=== PATIENT | male | born 1975 | race Caucasian/White ===

== ENCOUNTER 2018-02-20 17:53 | Emergency (ER) | payer SELFPAY ==
[~2018-02-20] VITALS: Ht 188 cm; Wt 86.2 kg
--- NOTE | 2018-02-20 18:13 | PHYS DOC ---
Adult General Chief Complaint Chief Complaint: OVERDOSE HPI HPI 42-year-old male presents via private vehicle and responsive. The patient first came in unable to respond to the staff. They were able to lift him from the car into a wheelchair. He was breathing, but was not responding to them. He was very diaphoretic. Once in the ED, we gave him 2 mg of Narcan and the patient woke up. He then told me that the last he remembers is going to [employer] for dinner. I asked if he took any drugs after [employer], and he denied this. He insisted he was okay now. He initially wanted to refuse treatment, but I explained him the nature of his condition when he arrived and the importance of staying. He did settle down and stay. He denies any medical history or other complaints. Review of Systems Review of Systems Constitutional: Denies fever or chills [] Eyes: Denies change in visual acuity, redness, or eye pain [] HENT: Denies nasal congestion or sore throat [] Respiratory: Denies cough or shortness of breath [] Cardiovascular: No additional information not addressed in HPI [] GI: Denies abdominal pain, nausea, vomiting, bloody stools or diarrhea [] : Denies dysuria or hematuria [] Musculoskeletal: Denies back pain or joint pain [] Integument: Denies rash or skin lesions [] Neurologic: Denies headache, focal weakness or sensory changes [] Endocrine: Denies polyuria or polydipsia [] All other systems were reviewed and found to be within normal limits, except as documented in this note. Current Medications Current Medications Current Medications Medications (Trade) Dose Ordered Sig/Darian Start Time Stop Time Status Last Admin Dose Admin Naloxone HCl (Narcan) 2 mg 1X ONCE 02/20/18 18:15 02/20/18 18:16 UNV Sodium Chloride 1,000 ml @ 1,000 mls/hr 1X ONCE 02/20/18 18:15 02/20/18 19:14 UNV Allergies Allergies Allergies Coded Allergies Type Severity Reaction Last Updated Verified No Known Drug Allergies 02/20/18 No Physical Exam Physical Exam Constitutional: Well developed, well nourished, no acute distress, non-toxic appearance. [] HENT: Normocephalic, atraumatic, bilateral external ears normal, oropharynx moist, no oral exudates, nose normal. [] Eyes: PERRLA, pinpoint pupils, EOMI, conjunctiva normal, no discharge. [] Neck: Normal range of motion, no tenderness, supple, no stridor. [] Cardiovascular:Heart rate regular rhythm, no murmur [] Lungs & Thorax: Bilateral breath sounds clear to auscultation [] Abdomen: Bowel sounds normal, soft, no tenderness, no masses, no pulsatile masses. [] Skin: Warm, diaphoretic, no rash. [] Back: No tenderness, no CVA tenderness. [] Extremities: No tenderness, no cyanosis, no clubbing, ROM intact, no edema. [] Neurologic: Alert and oriented X 3, normal motor function, normal sensory function, no focal deficits noted. [] Psychologic: Affect normal, judgement normal, mood normal. [] EKG EKG [] Radiology/Procedures Radiology/Procedures [] Course & Med Decision Making Course & Med Decision Making Pertinent Labs and Imaging studies reviewed. (See chart for details) After 2 mg of Narcan, the patient was alert and awake. We gave him a liter of normal saline. His diaphoresis stopped. He admitted to methamphetamine and opioid use. He says he didn't take very much. After period of observation, he did not relapse. A single dose of Narcan seemed to be adequate. His labs were marked for an elevated white count. Chest x-ray was unremarkable. His urine was also unremarkable. I do not see signs of infection or another disorder treat. Strongly advised patient to stop using drugs. He is stable for discharge at this time. [] Dragon Disclaimer Dragon Disclaimer This electronic medical record was generated, in whole or in part, using a voice recognition dictation system. ROSALIND CARTWRIGHT DO Feb 20, 2018 18:13
[2018-02-20] MEDS ORDERED: IV NORMAL SALINE 1,000ML 1,000 ML IV ONE (18:15)
[2018-02-20] MEDS ORDERED: ONDANSETRON PF 4 MG/2 ML VIAL. IV ONE (18:15)
[2018-02-20] MEDS ORDERED: NALOXONE 2 MG/2 ML DISP.SYRIN. IV ONE (18:15)
[2018-02-20 18:17] LABS: BASO # 0.1 x10^3/uL (0.0-0.2); BASO % 0 % (0-3); EOS # 0.1 x10^3/uL (0.0-0.7); EOS % 1 % (0-3); HEMATOCRIT 50.3 % (39.0-53.0); HEMOGLOBIN 16.8 g/dL (13.0-17.5); LYMPH # 4.2 x10^3/uL (1.0-4.8); LYMPH % 24 % (24-48); MEAN CORPUSCULAR HEMOGLOBIN 29 pg (25-35); MEAN CORPUSCULAR HGB CONC 33 g/dL (31-37); MEAN CORPUSCULAR VOLUME 88 fL (79-100); MONO # 1.3 x10^3/uL (0.0-1.1); MONO % 7 % (0-9); NEUT # 12.1 x10^3uL (1.8-7.7); NEUT % 68 % (31-73); PLATELET COUNT 494 x10^3/uL (140-400); RED BLOOD COUNT 5.73 x10^6/uL (4.30-5.70); RED CELL DISTRIBUTION WIDTH 14.2 % (11.5-14.5); WHITE BLOOD COUNT 17.8 x10^3/uL (4.0-11.0)
[2018-02-20 18:25] LABS: ALBUMIN 4.2 g/dL (3.4-5.0); CALCIUM 9.5 mg/dL (8.5-10.1); CREATININE 1.2 mg/dL (0.7-1.3); GFR 67.1; POTASSIUM 3.7 mmol/L (3.5-5.1); TOTAL BILIRUBIN 1.2 mg/dL (0.2-1.0); TOTAL PROTEIN 8.3 g/dL (6.4-8.2)
[2018-02-20 18:39] LABS: AMPHETAMINE/METHAMPHETAMINE POS (NEG); BARBITURATES NEG (NEG); BENZODIAZEPINES NEG (NEG); CANNABINOIDS NEG (NEG); COCAINE NEG (NEG); METHADONE NEG (NEG); OPIATES POS (NEG); PHENCYCLIDINE NEG (NEG)
[2018-02-20 19:49] LABS: BACTERIA,URINE 0 /HPF (0-FEW); BILIRUBIN,URINE NEG (NEG); CLARITY,URINE HAZY; COLOR,URINE YELLOW; GLUCOSE,URINE NEG (NEG); NITRITE,URINE NEG (NEG); SQUAMOUS EPITHELIAL CELL,UR OCC /LPF; UROBILINOGEN,URINE 1 mg/dL (0.2 mg/dL)
[2018-02-20 20:17] VITALS: BP 139/87
[2018-02-20 21:27] LABS: % BANDS 2 % (0-9); % BASOS 1 % (0-3); % EOS 3 % (0-5); % LYMPHS 19 % (24-48); % MONOS 8 % (0-10); % SEGS 67 % (35-66)
[2018-02-20 21:32] LABS: PLT ESTIMATE INCREASED (ADEQUATE)
--- NOTE | 2018-02-20 22:28 | RAD ---
PORTABLE CHEST 1V History: Shortness of breath Comparison: 10/12/2004 Findings: Single view of the chest is submitted. There is no infiltrate, pneumothorax, or effusion. The pericardial cardiac silhouette is within normal limits in size. Impression: 1. There is no evidence of acute cardiopulmonary disease. Electronically signed by: Chinedu Overton MD (02/20/2018 8:36 PM) [id number]
== END 2018-02-20 20:17 | disposition home or self-care (01) ==
LOC: ER 17:53
DX: R40.20 Unspecified coma (principal); R61 Generalized hyperhidrosis; F15.90 Other stimulant use, unspecified, uncomplicated; F11.90 Opioid use, unspecified, uncomplicated
CPT/HCPCS: 36415; 71045; 80053; 80307; 81001; 82947; 85007; 85025; 96374; 96375; 99285; J2310; J2405; G0479; J7030